=== PATIENT | female | born 1955 | race Caucasian/White ===

== ENCOUNTER 2020-01-30 12:52 | Emergency (ER) | payer MEDICARE, OTHER ==
--- NOTE | 2020-01-30 13:39 | ED ---
Head Injury - HPI Summary HPI Summary: This patient is a 64 y/o female presenting to [facility] c/o headache, dizziness, and nausea since 3 days ago after head injury. Patient reports on Sunday () around midday she bumped the left temporal side of her head on a dormer. She notes she immediately felt like "an explosion" in her head and her vision went black. Patient states she ten hit the bed and then began to feel pain in her head. Patient reports she was able to get up on her bed afterwards and saw her pupils were small. Since then patient has been feeling very tired, with worsening headache, dizziness, nausea. Additionally reports the left side of her face feels off, "like something dripping" on her face which she describes as a constant sensation. Patient states she has been staying in a dark room and sleeping. Denies any vomiting, neck pain, fever. Patient had a wellness appointment with her PCP in [place] today and was advised to come to the ED. Patient has not taken any pain medications, she states she only takes allergy medications. PMHx: concussions, HTN, mitral valve prolapse with regurgitation, asthma. Denies any anticoagulation. Denies tobacco or drug use, however admits to drinking 1 alcohol drink every day. Allergies to various medications including Iodine. Medications reviewed. Allergies noted. - History Of Current Complaint Chief Complaint: EDHeadInjury Stated Complaint: FALL-HEAD INJURY PER PT Time Seen by Provider: 01/30/20 13:28 Hx Obtained From: Patient Mechanism Of Injury: Direct Blow Onset/Duration: Started Days Ago, Still Present Onset of Pain: Minutes - after head strike Severity Currently: Moderate Severity Initially: Moderate Pain Intensity: 7 Pain Scale Used: 0-10 Numeric Location of Head Injury: Temporal - left Aggravating Factor(s): Other: - nothing Alleviating Factor(s): Other: - nothing Associated Signs And Symptoms: Nausea, Headache, Other: - POSITIVE: "something" dripping on left side of face, fatigue. NEGATIVE: vomiting, neck pain - Allergies/Home Medications Allergies/Adverse Reactions: Allergies Allergy/AdvReac Type Severity Reaction Status Date / Time cephalexin [From Keflex] Allergy Difficulty Verified 01/30/20 12:56 Breathing ciprofloxacin [From Cipro] Allergy Difficulty Verified 01/30/20 12:56 Breathing iodine Allergy Unknown Verified 01/30/20 13:34 Reaction Details levofloxacin [From Levaquin] Allergy Difficulty Verified 01/30/20 12:56 Breathing cillians Allergy Difficulty Uncoded 01/30/20 12:56 Breathing PMH/Surg Hx/FS Hx/Imm Hx Cardiovascular History: Reports: Hx Hypertension, Other Cardiovascular Problems/ Disorders - mitral valve prolapse with regurgitation Respiratory History: Reports: Hx Asthma Neurological History: Reports: Other Neuro Impairments/Disorders - concussion - Surgical History Surgical History: Yes Surgery Procedure, Year, and Place: knee replacement 3 months ago. vascular surgery for carotid artery. rib resection Infectious Disease History: No Infectious Disease History: Denies: Traveled Outside the [place] in Last 30 Days - Family History Known Family History: Positive: Non-Contributory - Social History Alcohol Use: Daily Alcohol Amount: 1 drink/day Substance Use Type: Reports: None Smoking Status (MU): Never Smoked Tobacco Review of Systems Positive: Fatigue. Negative: Fever Positive: Nausea. Negative: Vomiting Negative: Other - NEGATIVE: neck pain Neurological/Mental Status: Other - POSITIVE: dizziness, feeling of water dripping on left face Positive: Headache All Other Systems Reviewed And Are Negative: Yes Physical Exam - Summary Physical Exam Summary: Constitutional: Well-developed, Well-nourished, Alert. (-) Distressed Skin: Warm, Dry HENT: Normocephalic; Small abrasion to the left temporal region. No skull deformity. No hematoma. Eyes: Conjunctiva normal Neck: Musculoskeletal ROM normal neck. (-) JVD, (-) Stridor, (-) Tracheal deviation Cardio: Rhythm regular, rate normal, Heart sounds normal; Intact distal pulses. Radial pulses are 2+ and symmetric. (-) Murmur Pulmonary/Chest wall: Effort normal. (-) Respiratory distress, (-) Wheezes, (-) Rales Abd: Soft. (-) Tenderness, (-) Distension, (-) Guarding, (-) Rebound Musculoskeletal: (-) Edema Lymph: (-) Cervical adenopathy Neuro: Alert, Oriented x3, Strength normal, Cranial nerves II-XII are grossly intact. (-) Dysmetria, (-) Nystagmus, (-) Ataxia by finger to nose testing, (-) Sensory deficit. Psych: Mood and affect Normal Triage Information Reviewed: Yes Vital Signs On Initial Exam: Initial Vitals Temp Pulse Resp BP Pulse Ox 98.2 F 84 16 119/82 99 01/30/20 12:54 01/30/20 12:54 01/30/20 12:54 01/30/20 12:54 01/30/20 12:54 Vital Signs Reviewed: Yes - Ele Coma Scale Best Eye Response: 4 - Spontaneous Best Motor Response: 6 - Obeys Commands Best Verbal Response: 5 - Oriented Coma Scale Total: 15 Procedures - Sedation Patient Received Moderate/Deep Sedation with Procedure: No Diagnostics - Vital Signs Vital Signs Temp Pulse Resp BP Pulse Ox 01/30/20 12:54 98.2 F 84 16 119/82 99 - Laboratory Lab Statement: Any lab studies that have been ordered have been reviewed, and results considered in the medical decision making process. - CT Brain CT CT Interpretation Completed By: Radiologist Summary of CT Findings: IMPRESSION: No acute intracranial pathology. Dr. Mai has reviewed this report. Re-Evaluation - Re-Evaluation First Eval Re-Evaluation Time: 14:21 Comment: Reviewed results and discharge plan. Head Injury Course/Dx Course Of Treatment: Patient is here 2 days after hitting her head. Patient's had concussion type symptoms but was sent here for CT scan of the brain for concern of intracranial hemorrhage. Patient had a CT scan performed which showed no evidence of intracranial hemorrhage. Patient was educated on concussion management. Patient was offered nausea medicine and pain medicine but declined. - Diagnoses Provider Diagnoses: Closed head injury, Concussion - Critical Care Time Critical Care Statement: Critical care time is provided exclusive of any time spent performing procedures. Discharge ED - Sign-Out/Discharge Documenting (check all that apply): Patient Departure - Discharge home - Discharge Plan Condition: Stable Disposition: HOME Patient Education Materials: Concussion (ED), Head Injury (ED) Referrals: [facility] [Outside] Additional Instructions: Please follow up with your primary care physician in 1-3 days. Continue not using any screens or doing any activity using your brain until cleared by your primary care provider. If you continue with concussion symptoms in 1 week, try to get referred to the [facility]. PLEASE RETURN TO EMERGENCY DEPARTMENT FOR ONE SIDED WEAKNESS, ONE SIDED NUMBNESS , SLURRED SPEECH, OR ANY OTHER CONCERNING SYMPTOMS. - Billing Disposition and Condition Condition: STABLE Disposition: Home - Attestation Statements Document Initiated by Scribe: Yes Documenting Scribe: Martine Stanley Provider For Whom Scribe is Documenting (Include Credential): Simone Mai MD Scribe Attestation: I, Martine Stanley, scribed for Simone Mai MD on 01/30/20 at 1616. Scribe Documentation Reviewed: Yes Provider Attestation: The documentation as recorded by the scribe, Martine Stanley accurately reflects the service I personally performed and the decisions made by me, Simone Mai MD Status of Scribe Document: Viewed
[2020-01-30 14:05] VITALS: BP 132/78
== END 2020-01-30 15:04 | disposition home or self-care (01) ==
LOC: ED 12:52
DX: S06.0X9A Concussion with loss of consciousness of unspecified duration, initial encounter (principal); R51 Headache; R42 Dizziness and giddiness; R11.0 Nausea; I10 Essential (primary) hypertension; Z79.890 Hormone replacement therapy; Z79.899 Other long term (current) drug therapy; Z96.659 Presence of unspecified artificial knee joint; W22.8XXA Striking against or struck by other objects, initial encounter; Y92.9 Unspecified place or not applicable; R53.83 Other fatigue
CPT/HCPCS: 70450; 99282